=== PATIENT | male | born 1995 ===

== ENCOUNTER 2018-04-15 00:16 | Emergency (ER) | payer OTHER ==
[~2018-04-15] VITALS: Ht 188 cm; Wt 55.3 kg
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
[2018-04-15 01:21] LABS: ABG BASE EXCESS 0.2 MMOL/L (-2.5-2.5); ABG OXYGEN SATURATION 99 % (94-100); ABG PCO2 38 MMHG (35-45); ABG PH 7.42 (7.37-7.43); ABG PO2 101 MMHG (79-93); ABG TCO2 25.6 MMOL/L (21.0-31.0)
[2018-04-15 01:26] LABS: ALLENS TEST YES-POS; INSPIRED O2 RA; PATIENT TEMP 97.2; VENTILATOR NO
[2018-04-15 01:45] VITALS: BP 109/77
== END 2018-04-15 01:45 | disposition home or self-care (01) ==
LOC: ER 00:19
DX: Z04.3 Encounter for examination and observation following other accident (principal); Z77.098 Contact with and (suspected) exposure to other hazardous, chiefly nonmedicinal, chemicals; F17.210 Nicotine dependence, cigarettes, uncomplicated; X58.XXXA Exposure to other specified factors, initial encounter
CPT/HCPCS: 36600; 82375; 82805; 99283